=== PATIENT | female | born 1990 | race Caucasian/White ===

== ENCOUNTER 2022-11-19 14:01 | Emergency (ER) | payer BC, MEDICAID ==
[2022-11-19 15:29] LABS: ESTIMATED GFR 87 mL/min (>60)
[2022-11-19] MEDS ORDERED: Potassium Chloride 20 MEQ Tab.ER PO ONE (15:39)
[2022-11-19] MEDS ORDERED: Ibuprofen 800 MG Tab PO ONE (15:58)
== END 2022-11-19 16:42 | disposition home or self-care (01) ==
LOC: FB.ED 14:01
DX: E87.6 Hypokalemia (principal); E10.649 Type 1 diabetes mellitus with hypoglycemia without coma
CPT/HCPCS: 36415; 80053; 81001; 82947; 85025; 99283; 99285; A9270-GY